=== PATIENT | male | born 1955 | race Caucasian/White ===

== ENCOUNTER 2017-12-16 16:55 | Inpatient (IN) | payer MEDICARE, MEDICAID ==
[~2017-12-16] VITALS: Ht 193 cm; Wt 104.3 kg
[2017-12-16] MEDS ORDERED: Z GUARD REMEDY PASTE 57 GM TUBE TOP PRN (17:15)
[2017-12-16] MEDS ORDERED: DIPH25CA83 PO (17:24)
[2017-12-16] MEDS ORDERED: DOCU100C36 PO (17:24)
[2017-12-16] MEDS ORDERED: BENA40TA8 PO (17:36)
[2017-12-16] MEDS ORDERED: RIVA10TA PO (17:36)
[2017-12-16] MEDS ORDERED: SENN-18 PO (17:36)
[2017-12-16] MEDS ORDERED: HYDR25TA4 PO (17:36)
[2017-12-16] MEDS ORDERED: FAMO20TA8 PO (17:36)
[2017-12-16] MEDS ORDERED: OXYC15TA2 PO (17:36)
[2017-12-16] MEDS ORDERED: AMLO5TAB7 PO (17:36)
[2017-12-16] MEDS ORDERED: ALLO100T PO (17:36)
[2017-12-16] MEDS ORDERED: BISA10SU8 RC (17:46)
[2017-12-16] MEDS ORDERED: TAMS0.4C34 PO (17:46)
[2017-12-16] MEDS ORDERED: HYDR2SYR2 SQ (17:46)
[2017-12-16] MEDS ORDERED: ZOLP5TAB8 PO (17:46)
[2017-12-16 18:07] VITALS: BP 137/87
[2017-12-16] MEDS ORDERED: BISACODYL 10 MG SUPP.RECT RC PRN (19:15)
[2017-12-16] MEDS ORDERED: Medication Not On Formulary EA (Diphenhydramine Hcl (Benadryl) 25 MG) PO PRN (19:15)
[2017-12-16] MEDS ORDERED: ZOLPIDEM 5 MG TABLET PO PRN (19:15)
[2017-12-16] MEDS ORDERED: SENNOSIDES 1 TABLET PO PRN (19:15)
[2017-12-16 19:30] VITALS: BP 132/73
[2017-12-16] MEDS ORDERED: BENZOCAINE/MENTH/CETYLPYRD LOZENGE MM PRN (19:30)
[2017-12-16] MEDS ORDERED: CLONIDINE HCL 0.1 MG TABLET PO PRN (19:30)
--- NOTE | 2017-12-16 19:39 | NUR ---
Admitted a 62 years old male pt from [facility]. Pt. A/Ox4 with capacity to make decision and able to make needs known. Pt now s/p Rt. hip revision by Dr. Luis. Pt. is full code and has allergies to PCN. Pt. with no c/o of pain or discomfort at time of admission. Pt noted with 100.2 F oral, [employer] made aware, cooling measure initiated. Rt. hip surgical incision covered with dry dressing, C/D/I. Pt. on RA, breathing unlabored and equal. Pt. continent to B&B, uses urinal, last BM: 12/14/17. Pt. on regular diet, coordinated with dietary dept. Notified GUNNER'[employer] MATE (Khai Parks) for med recon. Dr. Hussein made aware of admission. Spouse at bedside for emotional support. All needs attended and met. Endorsed to oncoming shift accordingly.
[2017-12-16] MEDS ORDERED: diphenhydrAMINE 25 MG CAP PO PRN (20:00)
[2017-12-16] MEDS: TAMSULOSIN HCL 0.4 MG CAP.SR.24H PO SCH (20:18)
[2017-12-16] MEDS: FAMOTIDINE 20 MG TABLET PO SCH (20:18)
[2017-12-16] MEDS: OXYCODONE HCL 5 MG TABLET PO PRN ×2 (20:18→23:16)
[2017-12-16] MEDS: RIVAROXABAN 10 MG TABLET PO SCH (20:52)
[2017-12-17] MEDS: OXYCODONE HCL 5 MG TABLET PO PRN ×6 (03:01→22:26)
--- NOTE | 2017-12-17 04:49 | NUR ---
awake alert and oriented. in with patient. S/P right hip revision.wesly intact. fall precautions maintained. no acute distress noted. repositioned for comfort. medicated with oxycodone 15mg q3hrs. Tolerated well. Needs attended. voiding well. VSS. kept comfortable.
[2017-12-17 05:45] VITALS: BP 119/71
[2017-12-17 07:03] LABS: BASOPHILS # (AUTO) 0.1 K/uL (0.0-8.0); BASOPHILS % (AUTO) 0.7 % (0.0-2.0); EOSINOPHILS % (AUTO) 0.2 % (0.0-7.0); HEMATOCRIT 28.3 % (36.7-47.1); HEMOGLOBIN 9.9 g/dL (12.5-16.3); LYMPHOCYTES # (AUTO) 0.5 K/uL (20.0-40.0); LYMPHOCYTES % (AUTO) 5.2 % (20.5-51.5); MEAN CORPUSCULAR HEMOGLOBIN 29.5 uug (23.8-33.4); MEAN CORPUSCULAR HGB CONC 35 g/dL (32.5-36.3); MONOCYTES # (AUTO) 0.9 K/uL (2.0-10.0); MONOCYTES % (AUTO) 9.1 % (0.0-11.0); NEUTROPHILS # (AUTO) 8.2 K/uL (1.8-8.9); NEUTROPHILS % (AUTO) 84.8 % (38.5-71.5); PLATELET COUNT (AUTO) 234 K/uL (152-348); RED BLOOD CELL COUNT(AUTO) 3.37 MIL/uL (4.06-5.63); WHITE BLOOD COUNT (AUTO) 9.7 K/uL (3.6-10.2)
[2017-12-17 07:10] LABS: POTASSIUM 3.7 mmol/L (3.5-5.1)
[2017-12-17 08:00] VITALS: BP 128/74
[2017-12-17] MEDS: DOCUSATE SODIUM 100 MG CAPSULE PO SCH ×2 (08:06→16:47)
[2017-12-17] MEDS: HYDROCHLOROTHIAZIDE 25 MG TABLET PO SCH (08:07)
[2017-12-17] MEDS: FAMOTIDINE 20 MG TABLET PO SCH ×2 (08:07→20:34)
[2017-12-17] MEDS: ALLOPURINOL 100 MG TABLET PO SCH (08:07)
[2017-12-17] MEDS: AMLODIPINE 5 MG TABLET PO SCH (08:07)
[2017-12-17] MEDS ORDERED: MAG HYDROX/AL HYDROX/SIMETH 30 ML LIQUID UDC PO PRN (15:15)
[2017-12-17 15:59] VITALS: BP 126/69
[2017-12-17] MEDS ORDERED: ACETAMINOPHEN ES 500 MG TABLET PO ONE (16:30)
[2017-12-17] MEDS: MAGNESIUM HYDROXIDE 30 ML LIQUID UDC PO PRN (16:47)
[2017-12-17] MEDS: RIVAROXABAN 10 MG TABLET PO SCH (16:48)
[2017-12-17] MEDS ORDERED: RIVAROXABAN 10 MG TABLET PO SCH (17:00)
--- NOTE | 2017-12-17 17:34 | NUR ---
Patient is alert and oriented with periods of confusion. Patient continue on pain management oxycodone 15mg every 3 hours for pain. SPO2 90%. Oxygen via nasal cannula at 2LPM given. DNP Charly notified and ordered tylenol 1000mg now and PRN 650mg every 4 hours PRN and BMP CBC UA/CS for laboratory. Temp went down to 98.8'F SPO2 95%. milk of magnesia given for 3 days no BM. not in distress. will continue monitor
[2017-12-17 17:44] LABS: POTASSIUM 3.8 mmol/L (3.5-5.1)
[2017-12-17 17:47] LABS: BASOPHILS # (AUTO) 0.1 K/uL (0.0-8.0); BASOPHILS % (AUTO) 0.5 % (0.0-2.0); EOSINOPHILS % (AUTO) 0.2 % (0.0-7.0); HEMATOCRIT 30.4 % (36.7-47.1); HEMOGLOBIN 10.6 g/dL (12.5-16.3); LYMPHOCYTES # (AUTO) 0.5 K/uL (20.0-40.0); LYMPHOCYTES % (AUTO) 4.6 % (20.5-51.5); MEAN CORPUSCULAR HEMOGLOBIN 29.2 uug (23.8-33.4); MEAN CORPUSCULAR HGB CONC 35 g/dL (32.5-36.3); MEAN CORPUSCULAR VOLUME 83.8 fL (73.0-96.2); MONOCYTES % (AUTO) 8.6 % (0.0-11.0); NEUTROPHILS # (AUTO) 9.7 K/uL (1.8-8.9); NEUTROPHILS % (AUTO) 86.1 % (38.5-71.5); PLATELET COUNT (AUTO) 308 K/uL (152-348); RED BLOOD CELL COUNT(AUTO) 3.63 MIL/uL (4.06-5.63); WHITE BLOOD COUNT (AUTO) 11.2 K/uL (3.6-10.2)
[2017-12-17 19:44] VITALS: BP 122/75
[2017-12-17] MEDS: TAMSULOSIN HCL 0.4 MG CAP.SR.24H PO SCH (20:33)
--- NOTE | 2017-12-17 22:53 | NUR ---
awake alert and oriented. compliant with meds. tolerated well. UA C&S sent to lab per MD's order. PM care done. voiding well. needs attended. pain meds given as ordered with relief noted. right hip dressing clean dry and intact. fall precautions maintained. siderails up for safety. will monitor patient. no acute distress noted.
[2017-12-18 05:53] VITALS: BP 135/68
[2017-12-18] MEDS: OXYCODONE HCL 5 MG TABLET PO PRN ×3 (06:11→19:45)
[2017-12-18 08:00] VITALS: BP 125/71
[2017-12-18] MEDS: ACETAMINOPHEN 325 MG TABLET PO PRN ×3 (08:33→19:45)
[2017-12-18] MEDS: DOCUSATE SODIUM 100 MG CAPSULE PO SCH ×2 (08:34→15:45)
[2017-12-18] MEDS: HYDROCHLOROTHIAZIDE 25 MG TABLET PO SCH (08:34)
[2017-12-18] MEDS: AMLODIPINE 5 MG TABLET PO SCH (08:35)
[2017-12-18] MEDS: FAMOTIDINE 20 MG TABLET PO SCH ×2 (08:35→20:15)
[2017-12-18] MEDS: ALLOPURINOL 100 MG TABLET PO SCH (08:36)
[2017-12-18] MEDS: RIVAROXABAN 10 MG TABLET PO SCH (15:47)
[2017-12-18 16:00] VITALS: BP 127/67
[2017-12-18] MEDS ORDERED: MIRALAX 17 GM POWD.PACK PO PRN (18:45)
[2017-12-18] MEDS ORDERED: BISACODYL 10 MG SUPP.RECT RC PRN (18:45)
[2017-12-18 19:30] VITALS: BP 125/74
--- NOTE | 2017-12-18 19:51 | NUR ---
Received pt in bed, awake alert & oriented. No acute distress noted. Verbally responsive and able to make needs known. C/O pain 8/10 pain scale on right hip and back, PRN pain medications given per MD order. Noted w/ 99.7 oral temp. PRN Tylenol 650 mg given per MD order. Both medications tolerated well. All safety measures and fall precautions maintained. Call light and all personal belongings within reach. Will continue to monitor.
[2017-12-18] MEDS: TAMSULOSIN HCL 0.4 MG CAP.SR.24H PO SCH (20:15)
--- NOTE | 2017-12-18 20:47 | NUR ---
Re-checked oral temp and noted it to be 98.2 F. Safety maintained. Will continue to monitor.
[2017-12-18] MEDS ORDERED: LIDOCAINE 2% (UROJET) 10 ML JELLY MM PRN (21:30)
--- NOTE | 2017-12-18 21:30 | NUR ---
New order for UA. Urine collected and sent to lab.
[2017-12-18 22:01] LABS: *BILIRUBIN,URIN NEGATIVE (NEGATIVE); *BLOOD, URINE Trace-intact (NEGATIVE); *CLARITY,URINE SLIGHTLY CLOUDY (CLEAR); *COLOR,URINE YELLOW (YELLOW); *KETONES,URINE NEGATIVE (NEGATIVE); *PROTEIN,URINE 1+ (NEGATIVE); LEUKOCYTE ESTERASE ,URINE NEGATIVE (NEGATIVE); NITRITE, URINE NEGATIVE (NEGATIVE); PH,URINE 5.5 (5.0-8.0); UGLUCOSE NEGATIVE (NEGATIVE)
[2017-12-18 22:15] LABS: BACTERIA,URINE NONE SEEN /HPF (NONE SEEN); RBC,URINE 0-3 /HPF (0-3); SQUAMOUS EPITHELIAL CELL,UR NONE SEEN /HPF (NONE SEEN); WBC,URINE 0-3 /HPF (0-3)
[2017-12-19] MEDS: OXYCODONE HCL 5 MG TABLET PO PRN ×5 (00:14→14:24)
[2017-12-19] MEDS: ACETAMINOPHEN 325 MG TABLET PO PRN ×2 (03:20→17:14)
[2017-12-19 04:00] VITALS: BP 127/78
[2017-12-19 07:15] LABS: CREATININE 0.9 mg/dL (0.6-1.3); MAGNESIUM 2.2 mg/dL (1.8-2.4); PHOSPHOROUS 4.1 mg/dL (2.5-4.9); POTASSIUM 3.9 mmol/L (3.5-5.1)
[2017-12-19 07:37] LABS: BASOPHILS % (AUTO) 0.2 % (0.0-2.0); EOSINOPHILS # (AUTO) 0.1 K/uL (0.0-0.7); EOSINOPHILS % (AUTO) 0.9 % (0.0-7.0); HEMATOCRIT 28.7 % (36.7-47.1); HEMOGLOBIN 9.9 g/dL (12.5-16.3); LYMPHOCYTES # (AUTO) 0.4 K/uL (20.0-40.0); MEAN CORPUSCULAR HEMOGLOBIN 29.2 uug (23.8-33.4); MEAN CORPUSCULAR HGB CONC 35 g/dL (32.5-36.3); MEAN CORPUSCULAR VOLUME 84.6 fL (73.0-96.2); MONOCYTES # (AUTO) 0.5 K/uL (2.0-10.0); MONOCYTES % (AUTO) 7.3 % (0.0-11.0); NEUTROPHILS # (AUTO) 6.3 K/uL (1.8-8.9); NEUTROPHILS % (AUTO) 85.6 % (38.5-71.5); PLATELET COUNT (AUTO) 306 K/uL (152-348)
[2017-12-19 07:48] LABS: WHITE BLOOD COUNT (AUTO) 7.4 K/uL (3.6-10.2)
[2017-12-19 08:00] VITALS: BP 131/82
--- NOTE | 2017-12-19 08:00 | NUR ---
Patient awake, sitting up on bed eating breakfast, not in any form of acute distress. He denies any pain or discomfort at this time. Attended to his needs. Call light placed within reach.
[2017-12-19] MEDS: AMLODIPINE 5 MG TABLET PO SCH (08:22)
[2017-12-19] MEDS: DOCUSATE SODIUM 100 MG CAPSULE PO SCH ×2 (08:22→17:13)
[2017-12-19] MEDS: ALLOPURINOL 100 MG TABLET PO SCH (08:23)
[2017-12-19] MEDS: HYDROCHLOROTHIAZIDE 25 MG TABLET PO SCH (08:23)
[2017-12-19] MEDS: FAMOTIDINE 20 MG TABLET PO SCH ×2 (08:24→19:47)
[2017-12-19 16:21] VITALS: BP 119/71
[2017-12-19] MEDS: RIVAROXABAN 10 MG TABLET PO SCH (17:11)
--- NOTE | 2017-12-19 17:24 | NUR ---
Offered PRN miralax/MOM/dulcolax suppository but patient refused. Also offered prune juice but patient refused.
--- NOTE | 2017-12-19 19:00 | NUR ---
Bedside reporting done. Patient sleeping during initial rounds. No s/s of pain/discomforts. Safety measures and fall precaution maintained. Continue care as planned.
[2017-12-19] MEDS: SENNOSIDES 1 TABLET PO SCH (19:46)
[2017-12-19] MEDS: TAMSULOSIN HCL 0.4 MG CAP.SR.24H PO SCH (19:46)
[2017-12-19] MEDS: MORPHINE SULFATE SR 30 MG TABLET.SA PO SCH (19:50)
--- NOTE | 2017-12-19 19:50 | NUR ---
Awakened and complaining of right hip pain in scale of 8/10. Requested all medications due will be given too as well so he wont be bother after. All medications due for 2100 was given earlier as schedule. Continue to monitor.
[2017-12-19 20:00] VITALS: BP 139/80
--- NOTE | 2017-12-19 21:24 | NUR ---
Made comfortable in bed.
[2017-12-20 06:15] VITALS: BP 141/76
--- NOTE | 2017-12-20 06:21 | NUR ---
Shift End Report: Slept well. Pain medication given effective. No further complaint presented. No fall/injury.Remain afebrile throughout the shift. All needs attended and met. No significant event reported all night. Continue care as planned.
[2017-12-20 08:00] VITALS: BP 127/76
[2017-12-20] MEDS: ALLOPURINOL 100 MG TABLET PO SCH (08:12)
[2017-12-20] MEDS: FAMOTIDINE 20 MG TABLET PO SCH ×2 (08:12→20:51)
[2017-12-20] MEDS: DOCUSATE SODIUM 100 MG CAPSULE PO SCH ×2 (08:12→17:09)
[2017-12-20] MEDS: AMLODIPINE 5 MG TABLET PO SCH (08:13)
[2017-12-20] MEDS: HYDROCHLOROTHIAZIDE 25 MG TABLET PO SCH (08:13)
[2017-12-20] MEDS: MORPHINE SULFATE SR 30 MG TABLET.SA PO SCH ×3 (08:51→22:16)
--- NOTE | 2017-12-20 09:11 | NUR ---
Received report from previous shift. Received pt. in bed with eyes open and comfortable. Pt. A/OX3 with capacity to made decision and able to make his needs known. Denies CP or SOB at this time. C/O 10/11 P.S on surgical incision on RT. Hip. Rt. hip dressing changed PRN soiled, noted with 38 wesly, no s/s of infection or bleeding noted. Pain medications given as ordered. All due AM medications administered and tolerated well. Safety measures in place. Bed brakes on 2X upper SR up as enabler for bed position and mobility. Kept pt. clean and dry. All pt. needs attended promptly. Call light and all frequently used items in reach. Will continue to monitor accordingly.
[2017-12-20] MEDS: OXYCODONE HCL 5 MG TABLET PO PRN ×2 (09:43→17:10)
--- NOTE | 2017-12-20 10:47 | NUR ---
Relayed to Dr. Hussein pt. still c/o severe pain (8 p.s) on RT. hip. Received order to to d/c previous MS contin order and start Gabapentin 300 mg PO BID and MS contin 30 mg PO Q8H ATC. Orders noted and carried out. Pt. made aware.
--- NOTE | 2017-12-20 13:25 | NUR ---
Pt. has f/u appointment with Dr. Luis (Ortho) on 12/28/2017 (1:30 PM), transportation arranged by CM. wastewater supervisor time 12:30 PM by [employer] trip# [id number]. Pt. made aware with no further question. Requested XR of rt. hip to Dr. Keenan MD amenable. Orders noted and carried out.
[2017-12-20 16:04] VITALS: BP 141/83
[2017-12-20] MEDS: GABAPENTIN 300 MG CAPSULE PO SCH (17:09)
[2017-12-20] MEDS: RIVAROXABAN 10 MG TABLET PO SCH (17:11)
--- NOTE | 2017-12-20 18:14 | NUR ---
Recieved order for air mattress for skin mgt from Dr. Hussein. Orders noted and carried out. Pt. made aware.
--- NOTE | 2017-12-20 18:53 | NUR ---
End of shift note: No significant change during this shift. Pt. remains stable with no c/o CP or SOB. Encourage pt. to use incentive spirometer to help improve lung functions. Participated with PT/OT treatment and tolerated well. No changes in mentation. Safety measures and fall precaution in place. CXR completed today results reveal no evidence of PNA, pleural effusion or pneumothorax, noted with mild RT and mod Lt. basilar atelecatasis. All pt. needs promptly met. Afebrile throughout this shift. pt. with C/O 7/10 P.S on Rt. Hip surgical incision, PRN oxycodone given as ordered. Repositioned pt. for comfort. All afternoon due meds given and tolerated well. Rt. Hip surgical dressing kept C/D/I. Call light and all frequently used items a within reach. Will endorse to oncoming shift accordingly.
--- NOTE | 2017-12-20 19:00 | NUR ---
Bedside reporting. Patient appears sleeping at this time. No s/s of pain/discomforts noted at this time. Safety measures and fall precaution maintained. Urinal within easy reach. Continue care as planned.
[2017-12-20 19:59] VITALS: BP 119/68
[2017-12-20] MEDS: TAMSULOSIN HCL 0.4 MG CAP.SR.24H PO SCH (20:51)
[2017-12-20] MEDS: SENNOSIDES 1 TABLET PO SCH (20:51)
[2017-12-21] MEDS: MORPHINE SULFATE SR 30 MG TABLET.SA PO SCH ×3 (05:38→22:38)
[2017-12-21 07:00] VITALS: BP 130/67
--- NOTE | 2017-12-21 07:00 | NUR ---
Shift End Report: VS stable. Slept good. No complaint presented all night. All needs attended and met. Continue current rehab plan of care.
[2017-12-21] MEDS: OXYCODONE HCL 5 MG TABLET PO PRN ×2 (07:36→12:06)
[2017-12-21] MEDS: HYDROCHLOROTHIAZIDE 25 MG TABLET PO SCH (08:47)
[2017-12-21] MEDS: GABAPENTIN 300 MG CAPSULE PO SCH ×2 (08:47→17:35)
[2017-12-21] MEDS: DOCUSATE SODIUM 100 MG CAPSULE PO SCH ×2 (08:47→17:34)
[2017-12-21] MEDS: FAMOTIDINE 20 MG TABLET PO SCH ×2 (08:48→20:59)
[2017-12-21] MEDS: ALLOPURINOL 100 MG TABLET PO SCH (08:48)
[2017-12-21] MEDS: AMLODIPINE 5 MG TABLET PO SCH (08:48)
[2017-12-21 09:01] VITALS: BP 125/70
--- NOTE | 2017-12-21 09:02 | NUR ---
Received report from previous shift. Received pt. in bed with eyes open and comfortable. A/OX3 and able to make his needs known. Denies CP or SOB at this time. C/O 7/10 P.S on surgical incision on RT. Hip. PRN OxyIR administered as ordered. C/O of new onset of back area itching, skin with slight redness no skin breakdown. Air mattress arrive in unit and setup accordingly. All due AM medications administered and tolerated well. Safety measures and fall precaution in place. Bed brakes on 2X upper SR up as enabler for bed position and mobility. Kept pt. clean and dry. All pt. needs attended promptly. Call light and all frequently used items in reach. Will continue to monitor accordingly
[2017-12-21] MEDS: MAGNESIUM HYDROXIDE 30 ML LIQUID UDC PO PRN (12:06)
--- NOTE | 2017-12-21 13:39 | NUR ---
Received order for hydrocortisone cream from Dr. Baker for itching.
--- NOTE | 2017-12-21 16:03 | NUR ---
INTERDISCIPLINARY TEAM CONFERENCE
[2017-12-21 17:17] VITALS: BP 122/68
[2017-12-21] MEDS: HYDROCORTISONE 1% CREAM 30 GM TUBE TP SCH (17:35)
[2017-12-21] MEDS: RIVAROXABAN 10 MG TABLET PO SCH (17:36)
--- NOTE | 2017-12-21 19:00 | NUR ---
Sleeping during initial rounds but easily arousable when name called. Denies any pain/discomforts at this time. Continue care as planned.
[2017-12-21 19:19] VITALS: BP 125/71
--- NOTE | 2017-12-21 19:22 | NUR ---
End of shift note: No significant changed during this shift. All due medications administered as ordered and tolerated well. Encourage use of IS for lung expansion. Pt. participated with OT/PT tx today and tolerated well. Pt. denies SOB or CP, remain afebrile throught this shift. No new skin condition noted. Pt pain well managed with pain regimen. All needs attended and met. Safety measures in place. Call light and all frequently used items in reach. Will endorse to oncoming shift accordingly.
[2017-12-21] MEDS: SENNOSIDES 1 TABLET PO SCH (20:59)
[2017-12-21] MEDS: TAMSULOSIN HCL 0.4 MG CAP.SR.24H PO SCH (20:59)
[2017-12-22] MEDS: OXYCODONE HCL 5 MG TABLET PO PRN ×3 (03:21→17:06)
[2017-12-22] MEDS: MORPHINE SULFATE SR 30 MG TABLET.SA PO SCH ×3 (05:32→21:10)
[2017-12-22 05:39] VITALS: BP 120/65
--- NOTE | 2017-12-22 05:41 | NUR ---
Shift End Report: VS stable.Slept well. Encouraged self help by turning once in while on bed to avoid complication. Redness/rashes on back slightly visible this time. Denies itchiness. Good back rub rendered after each turning. Medicated once for a PRN pain medication otherwise pain controlled. No fall/injury. All needs attended and anticipated. No significant event reported all night. Continue current rehab plan of care.
--- NOTE | 2017-12-22 07:20 | NUR ---
Patient noted sitting up in bed, states pain level is a 7/10 but would prefers to have pain medication around 0900 for therapy, no signs of distress noted, call light in reach, bed locked and in lowest position, x [address], all needs met at this time
[2017-12-22] MEDS: DOCUSATE SODIUM 100 MG CAPSULE PO SCH ×2 (08:47→17:06)
[2017-12-22] MEDS: GABAPENTIN 300 MG CAPSULE PO SCH ×2 (08:47→17:06)
[2017-12-22] MEDS: FAMOTIDINE 20 MG TABLET PO SCH ×2 (08:47→20:17)
[2017-12-22] MEDS: ALLOPURINOL 100 MG TABLET PO SCH (08:47)
[2017-12-22] MEDS: AMLODIPINE 5 MG TABLET PO SCH (08:49)
[2017-12-22] MEDS: HYDROCHLOROTHIAZIDE 25 MG TABLET PO SCH (08:50)
[2017-12-22] MEDS: HYDROCORTISONE 1% CREAM 30 GM TUBE TP SCH ×2 (08:51→17:09)
[2017-12-22 09:25] VITALS: BP 133/58
--- NOTE | 2017-12-22 16:47 | NUR ---
Patient surgical dressing changed as ordered, redness and swelling noted to staple sites, picture placed in chart, MD Pires notified with orders for wound consult
[2017-12-22] MEDS: RIVAROXABAN 10 MG TABLET PO SCH (17:09)
--- NOTE | 2017-12-22 19:59 | NUR ---
Received pt resting in bed. AAO x4. No acute distress noted. No c/o pain or discomfort at this time. Pt stated that he feels better now than this morning in regards to pain. Temp. elevated 101.1, will give Tylenol PRN. Cooling measures initiated. Will notify MD. As per day shift RN, Dr. Ding is aware of developing wound infection and put an order for wound consult. Air mattress in place, will encourage turning and repositioning. Safety measures maintained. Call light and personal belongings within reach. Will continue to monitor.
[2017-12-22 20:00] VITALS: BP 136/70
[2017-12-22] MEDS: ACETAMINOPHEN 325 MG TABLET PO PRN (20:16)
[2017-12-22] MEDS: TAMSULOSIN HCL 0.4 MG CAP.SR.24H PO SCH (20:17)
[2017-12-22] MEDS: SENNOSIDES 1 TABLET PO SCH (20:18)
--- NOTE | 2017-12-22 20:27 | NUR ---
Pt refused senokot, stated that he wants to rest tonight and it might make him go to the bathroom in the middle of the night. Risks and benefits explained, still refused. He stated that he will take something for the bowel movement in the morning instead. Also noted that dinner tray is untouched when collected, pt stated that he is not hungry but he ate lunch. Encouraged pt to let me know if he gets hungry so I can provide a meal or some snacks anytime. Pt verbalized understanding. Will continue to monitor.
--- NOTE | 2017-12-22 21:02 | NUR ---
At 2036, notified Dr. Ding regarding pt's elevated temp and lab result on 12/19/17 Na 131. responded at 2057 for new lab in the morning. Will continue to monitor.
[2017-12-23] MEDS: MORPHINE SULFATE SR 30 MG TABLET.SA PO SCH ×3 (06:19→21:01)
[2017-12-23 06:43] VITALS: BP 137/75
--- NOTE | 2017-12-23 06:51 | NUR ---
Cleaned pt and changed diaper. Wound dressing intact. No leakage. Will continue to monitor.
[2017-12-23 07:12] LABS: BASOPHILS % (AUTO) 0.4 % (0.0-2.0); EOSINOPHILS # (AUTO) 0.1 K/uL (0.0-0.7); EOSINOPHILS % (AUTO) 0.8 % (0.0-7.0); HEMATOCRIT 27.9 % (36.7-47.1); HEMOGLOBIN 9.6 g/dL (12.5-16.3); LYMPHOCYTES # (AUTO) 0.4 K/uL (20.0-40.0); LYMPHOCYTES % (AUTO) 4.9 % (20.5-51.5); MEAN CORPUSCULAR HEMOGLOBIN 28.8 uug (23.8-33.4); MEAN CORPUSCULAR HGB CONC 34 g/dL (32.5-36.3); MEAN CORPUSCULAR VOLUME 83.9 fL (73.0-96.2); MONOCYTES # (AUTO) 0.6 K/uL (2.0-10.0); MONOCYTES % (AUTO) 8.1 % (0.0-11.0); NEUTROPHILS # (AUTO) 6.1 K/uL (1.8-8.9); NEUTROPHILS % (AUTO) 85.8 % (38.5-71.5); PLATELET COUNT (AUTO) 456 K/uL (152-348); RED BLOOD CELL COUNT(AUTO) 3.32 MIL/uL (4.06-5.63); WHITE BLOOD COUNT (AUTO) 7.2 K/uL (3.6-10.2)
[2017-12-23 07:22] LABS: CREATININE 0.8 mg/dL (0.6-1.3)
[2017-12-23 08:30] VITALS: BP 127/63
[2017-12-23] MEDS: GABAPENTIN 300 MG CAPSULE PO SCH ×2 (08:53→17:11)
[2017-12-23] MEDS: HYDROCHLOROTHIAZIDE 25 MG TABLET PO SCH (08:54)
[2017-12-23] MEDS: FAMOTIDINE 20 MG TABLET PO SCH ×2 (08:54→20:59)
[2017-12-23] MEDS: AMLODIPINE 5 MG TABLET PO SCH (08:54)
[2017-12-23] MEDS: ALLOPURINOL 100 MG TABLET PO SCH (08:54)
[2017-12-23] MEDS: DOCUSATE SODIUM 100 MG CAPSULE PO SCH ×2 (08:54→17:11)
[2017-12-23] MEDS: OXYCODONE HCL 5 MG TABLET PO PRN (08:56)
[2017-12-23] MEDS: HYDROCORTISONE 1% CREAM 30 GM TUBE TP SCH ×2 (09:07→17:13)
--- NOTE | 2017-12-23 12:10 | NUR ---
Dr. Timur Pires in the unit, notified MD regarding patient's complain of gout flare ups and MD ordered Colchicine 0.6mg BID. Also told MD regarding surgical wound redness as endorsed by night clerk, showed wound picture and he ordered vancomycin IV pharmacy to dose. Informed MD regarding sodium of 128 with no new order.
--- NOTE | 2017-12-23 13:03 | NUR ---
WOUND CARE CONSULT: PT SEEN FOR RT HIP INCISION WITH NAY. NO TENDERNESS NOTED, NO DRAINAGE NOTED BUT SLIGHT REDNESS NOTED. HEALED AREA NOTED TO THIGH POSTERIOR TO INCISION. DEFER TO SURGEON FOR SURGICAL SITE. PT ALSO NOTED TO HAVE RT HEEL INTACT DEEP TISSUE INJURY. RECOMMENDATIONS MADE FOR CARE AND PROTECTION OF HEELS. DISCUSSED WITH NURSING STAFF. PT ON FIRST STEP [facility] LOW AIRLOSS MATTRESS. ALL SKIN PROTECTION MEASURES IN PLACE. WILL SEE PRN. Ken Velázquez IN AGREEMENT WITH PLAN OF CARE. Addendum: 12/23/17 at 1306 by STEFANIE HERNANDEZ RN Amended: Links added.
--- NOTE | 2017-12-23 13:22 | NUR ---
Received call from Dr. Luis's office, regarding redness over surgical site. ESTELLE Morfin for Dr. Luis said to continue to monitor for increasing redness and watch out for dehiscence, drainage or other s/s and update or call clinic as necessary. PA said if Hospitalist deem it necessary for anti-biotics, that is fine until DR. Luis would see the patient on the day scheduled, 12/28.
--- NOTE | 2017-12-23 13:38 | NUR ---
INTERDISCIPLINARY TEAM CONFERENCE
--- NOTE | 2017-12-23 14:45 | NUR ---
Dr. Hussein made aware regarding surgical site redness, MD saw patient and examined surgical site. MD stated not to start IV vancomycin yet until he speaks with Dr. Timur Nielsen.
--- NOTE | 2017-12-23 15:24 | NUR ---
Clinical pharmacy note-Vancomycin dosing per pharmacy Subjective: To start Vancomycin dosing on this patient for suspected infection(S/P his arthroplasty) Objective: BUN 17 Scr 0.8 WBC 7.2 Temp 98.1 Assessment/Plan: Will start Vancomycin 1750mg IV every 12hrs(first dose given today at 1400) and draw trough by 4th dose(not ordered yet) for expected trough around 15.84. Will monitor daily.
--- NOTE | 2017-12-23 15:30 | NUR ---
Left a message to Dr. Hussein to follow up on the administration of IV vancomycin, awaiting call back.
[2017-12-23 16:28] VITALS: BP 131/73
--- NOTE | 2017-12-23 17:00 | NUR ---
Received a call back from Dr. Hussein and ordered may administer Vancomycin IV as initially ordered.
[2017-12-23] MEDS: VANCOMYCIN IV 1,750 MG in IV DEXTROSE 5% 500 ML IV SCH (17:10)
[2017-12-23] MEDS: COLCHICINE 0.6 MG TABLET PO SCH (17:11)
[2017-12-23] MEDS: RIVAROXABAN 10 MG TABLET PO SCH (17:12)
[2017-12-23 20:30] VITALS: BP 124/68
[2017-12-23] MEDS: TAMSULOSIN HCL 0.4 MG CAP.SR.24H PO SCH (20:58)
[2017-12-23] MEDS: SENNOSIDES 1 TABLET PO SCH (20:59)
[2017-12-24] MEDS: VANCOMYCIN IV 1,750 MG in IV DEXTROSE 5% 500 ML IV SCH ×2 (01:08→14:04)
[2017-12-24 05:24] VITALS: BP 132/71
--- NOTE | 2017-12-24 05:34 | NUR ---
slept most of the shift. aaox4. needs attended. no acute distress noted. right arm heplock intact. IV Vancomycin given. fall precautions maintained. call bella within reach. pain meds given as scheduled. voiding well. VSS. Right hip dressing clean dry and intact. UA sent for random sodium. Will monitor patient.
[2017-12-24] MEDS: MORPHINE SULFATE SR 30 MG TABLET.SA PO SCH ×3 (06:14→21:28)
[2017-12-24 06:58] LABS: CREATININE 0.8 mg/dL (0.6-1.3); MAGNESIUM 1.9 mg/dL (1.8-2.4); PHOSPHOROUS 3.9 mg/dL (2.5-4.9); POTASSIUM 4.1 mmol/L (3.5-5.1); URIC ACID 4.5 mg/dL (3.5-7.2)
[2017-12-24 07:05] LABS: THYROID STIMULATING HORMONE 0.857 mIU/mL (0.358-3.740)
--- NOTE | 2017-12-24 07:29 | NUR ---
PATIENT NOTED RESTING IN BED WITH EYES CLOSED, AROUSES EASILY, STATES PAIN LEVEL IS A 8/10, WILL GIVEN PRN PAIN MEDICATION, NO SIGNS OF DISTRESS NOTED, CALL LIGHT IN REACH, BED LOCKED AND IN LOWEST POSITION, X 2 BED RAILS
[2017-12-24] MEDS: FAMOTIDINE 20 MG TABLET PO SCH ×2 (08:24→21:28)
[2017-12-24] MEDS: DOCUSATE SODIUM 100 MG CAPSULE PO SCH ×2 (08:24→17:15)
[2017-12-24] MEDS: OXYCODONE HCL 5 MG TABLET PO PRN ×2 (08:24→17:16)
[2017-12-24] MEDS: COLCHICINE 0.6 MG TABLET PO SCH ×2 (08:24→17:15)
[2017-12-24] MEDS: ALLOPURINOL 100 MG TABLET PO SCH (08:24)
[2017-12-24] MEDS: GABAPENTIN 300 MG CAPSULE PO SCH ×2 (08:24→17:15)
[2017-12-24] MEDS: AMLODIPINE 5 MG TABLET PO SCH (08:28)
[2017-12-24] MEDS: HYDROCORTISONE 1% CREAM 30 GM TUBE TP SCH ×2 (08:31→17:15)
[2017-12-24 09:07] VITALS: BP 120/66
--- NOTE | 2017-12-24 10:54 | NUR ---
Clinical pharmacy note-Vancomycin dosing per pharmacy Subjective: To continue Vancomycin dosing on this patient for suspected infection(S/P his arthroplasty- fever) Objective: BUN 16 Scr 0.8 WBC 7.2 (12/23) Temp 98.3 Assessment/Plan: Will continue same dose of Vancomycin 1750mg IV every 12hrs for today. First dose was given 1700 instead of 1400 on 12/23. Will consider 12/24 0100 dose as 1st dose) and plan to draw trough by 4th dose(not ordered yet) for expected trough around 15.84. Will monitor daily.
[2017-12-24] MEDS: RIVAROXABAN 10 MG TABLET PO SCH (17:15)
--- NOTE | 2017-12-24 19:44 | NUR ---
Received pt in bed, AAO x4 resting in bed with at bedside. No acute distress noted. Verbally responsive and able to make needs known. C/O of "discomfort in joints because of gout". Per pt, pain is decreased after pain medication given by AM nurse. All safety measures and fall precautions maintained. Call light and all personal belongings within reach. Will continue to monitor.
[2017-12-24 20:15] VITALS: BP 127/74
[2017-12-24] MEDS: TAMSULOSIN HCL 0.4 MG CAP.SR.24H PO SCH (21:28)
[2017-12-24] MEDS: SENNOSIDES 1 TABLET PO SCH (21:28)
[2017-12-25] MEDS: VANCOMYCIN IV 1,750 MG in IV DEXTROSE 5% 500 ML IV SCH ×2 (01:09→15:08)
[2017-12-25] MEDS: OXYCODONE HCL 5 MG TABLET PO PRN ×2 (01:19→09:49)
[2017-12-25 05:00] VITALS: BP 122/70
[2017-12-25] MEDS: MORPHINE SULFATE SR 30 MG TABLET.SA PO SCH ×3 (06:09→21:32)
--- NOTE | 2017-12-25 06:34 | NUR ---
Dressing change done as ordered. Site noted with redness, wesly intact with no drainage noted. Offered disposable underwear and patient complied, placing pad from home in underwear. Safety maintained. Compliant with care, all due medications given as ordered and tolerated well. Call light within reach. Will continue to monitor.
[2017-12-25 08:45] VITALS: BP 122/74
[2017-12-25] MEDS: DOCUSATE SODIUM 100 MG CAPSULE PO SCH ×2 (09:36→17:37)
[2017-12-25] MEDS: GABAPENTIN 300 MG CAPSULE PO SCH ×2 (09:36→17:36)
[2017-12-25] MEDS: COLCHICINE 0.6 MG TABLET PO SCH ×2 (09:36→17:37)
[2017-12-25] MEDS: ALLOPURINOL 300 MG TABLET PO SCH (09:37)
[2017-12-25] MEDS: AMLODIPINE 5 MG TABLET PO SCH (09:37)
[2017-12-25] MEDS: FAMOTIDINE 20 MG TABLET PO SCH ×2 (09:37→21:32)
[2017-12-25] MEDS: HYDROCORTISONE 1% CREAM 30 GM TUBE TP SCH ×2 (09:38→17:43)
--- NOTE | 2017-12-25 14:09 | NUR ---
Clinical pharmacy note-Vancomycin dosing per pharmacy Subjective: To continue Vancomycin dosing on this 62 yo male patient for suspected infection(S/P his arthroplasty) Objective: BUN 16 (12/24) Scr 0.8 (12/24) WBC 7.2 (12/23) Temp 98.4 Vanco trough level: 11 ht 193 cm wt 104 kg Assessment/Plan: Since vanco trough level is 11 mcg/ml, will change dose of Vancomycin to 1750mg IV every 10 hrs(first dose given today at 1430) and draw trough by 4th dose(not ordered yet) for expected trough around 15.9. Will monitor renal function & adjust the dose if needed. Will follow up.
[2017-12-25] MEDS: RIVAROXABAN 10 MG TABLET PO SCH (17:37)
--- NOTE | 2017-12-25 19:35 | NUR ---
Received pt in bed, AAO x 4, no acute distress noted. Denies pain or discomfort at this time. Verbally responsive and able to make needs known. All safety measures and fall precautions maintained. Call light and all personal belongings within reach. Will continue to monitor.
[2017-12-25] MEDS: TAMSULOSIN HCL 0.4 MG CAP.SR.24H PO SCH (21:32)
[2017-12-25] MEDS: SENNOSIDES 1 TABLET PO SCH (21:32)
[2017-12-25 21:50] VITALS: BP 128/67
[2017-12-26] MEDS: VANCOMYCIN IV 1,750 MG in IV DEXTROSE 5% 500 ML IV SCH ×3 (00:23→20:50)
[2017-12-26] MEDS: OXYCODONE HCL 5 MG TABLET PO PRN ×3 (00:30→17:28)
[2017-12-26] MEDS: MORPHINE SULFATE SR 30 MG TABLET.SA PO SCH ×3 (05:42→21:03)
[2017-12-26 06:38] VITALS: BP 124/68
--- NOTE | 2017-12-26 07:52 | NUR ---
Patient noted resting in bed with eyes closed, no facial cues of pain noted, no signs of distress, call light in reach, bed locked and in lowest position, x [address], urinal and bed side table in reach
[2017-12-26] MEDS: DOCUSATE SODIUM 100 MG CAPSULE PO SCH ×2 (08:47→17:24)
[2017-12-26] MEDS: ALLOPURINOL 300 MG TABLET PO SCH (08:47)
[2017-12-26] MEDS: GABAPENTIN 300 MG CAPSULE PO SCH ×2 (08:47→17:23)
[2017-12-26] MEDS: COLCHICINE 0.6 MG TABLET PO SCH ×2 (08:47→17:24)
[2017-12-26] MEDS: FAMOTIDINE 20 MG TABLET PO SCH ×2 (08:47→21:02)
[2017-12-26] MEDS: AMLODIPINE 5 MG TABLET PO SCH (08:48)
[2017-12-26] MEDS: HYDROCORTISONE 1% CREAM 30 GM TUBE TP SCH ×2 (08:49→17:28)
[2017-12-26 12:49] VITALS: BP 117/67
--- NOTE | 2017-12-26 15:00 | NUR ---
Clinical pharmacy note-Vancomycin dosing per pharmacy Subjective: To continue Vancomycin dosing on this 62 yo male patient for suspected infection(S/P his arthroplasty) Objective: BUN 16 (12/24) Scr 0.8 (12/24) WBC 7.2 (12/23) Temp 98.5 Vanco trough level: pending tonight @1999 ht 193 cm wt 104 kg Assessment/Plan: Will continue Vancomycin 1750mg IV every 10 hrs and draw trough by 4th dose (due tonight @1999) for expected trough around 15.9. Will check level in am and adjust as needed. Will follow
[2017-12-26 15:45] VITALS: BP 128/73
[2017-12-26] MEDS: RIVAROXABAN 10 MG TABLET PO SCH (17:23)
--- NOTE | 2017-12-26 19:23 | NUR ---
Dressing to right hip changed, redness and drainage noted to surgical site, MD aware of findings, no change in status this shift
[2017-12-26 20:10] VITALS: BP 130/72
[2017-12-26] MEDS: TAMSULOSIN HCL 0.4 MG CAP.SR.24H PO SCH (21:02)
[2017-12-26] MEDS: SENNOSIDES 1 TABLET PO SCH (21:02)
[2017-12-27 05:10] VITALS: BP 147/83
--- NOTE | 2017-12-27 05:16 | NUR ---
quiet night. aaox4 no acute distress noted. patient still on IV vancomycin. tolerated well no ill effects noted. voiding frequently in the urinal. tolerated po meds well also the pain medicine. fall precautions maintained. siderails up for safety. will monitor patient.
[2017-12-27] MEDS: VANCOMYCIN IV 1,750 MG in IV DEXTROSE 5% 500 ML IV SCH ×2 (05:43→16:34)
[2017-12-27] MEDS: MORPHINE SULFATE SR 30 MG TABLET.SA PO SCH ×3 (05:46→21:44)
[2017-12-27 06:50] LABS: BASOPHILS % (AUTO) 0.9 % (0.0-2.0); EOSINOPHILS # (AUTO) 0.1 K/uL (0.0-0.7); EOSINOPHILS % (AUTO) 3.3 % (0.0-7.0); HEMATOCRIT 27.9 % (36.7-47.1); HEMOGLOBIN 9.7 g/dL (12.5-16.3); LYMPHOCYTES # (AUTO) 0.4 K/uL (20.0-40.0); MEAN CORPUSCULAR HEMOGLOBIN 28.9 uug (23.8-33.4); MEAN CORPUSCULAR HGB CONC 35 g/dL (32.5-36.3); MEAN CORPUSCULAR VOLUME 83.3 fL (73.0-96.2); MONOCYTES # (AUTO) 0.5 K/uL (2.0-10.0); MONOCYTES % (AUTO) 10.5 % (0.0-11.0); NEUTROPHILS # (AUTO) 3.4 K/uL (1.8-8.9); NEUTROPHILS % (AUTO) 76.3 % (38.5-71.5); PLATELET COUNT (AUTO) 569 K/uL (152-348); RED BLOOD CELL COUNT(AUTO) 3.35 MIL/uL (4.06-5.63); WHITE BLOOD COUNT (AUTO) 4.5 K/uL (3.6-10.2)
[2017-12-27 07:07] LABS: BILIRUBIN,TOTAL 0.5 mg/dL (0.2-1.0); CREATININE 0.9 mg/dL (0.6-1.3); MAGNESIUM 1.9 mg/dL (1.8-2.4); PHOSPHOROUS 4.3 mg/dL (2.5-4.9); TOTAL PROTEIN, SERUM 6.3 g/dL (6.4-8.2)
--- NOTE | 2017-12-27 09:00 | NUR ---
Received patient awake, alert x4. With air mattress in place. Tolerable pain over right hip area. Not in any form of distress. Will continue to monitor.
[2017-12-27] MEDS: COLCHICINE 0.6 MG TABLET PO SCH ×2 (09:20→16:34)
[2017-12-27] MEDS: DOCUSATE SODIUM 100 MG CAPSULE PO SCH ×2 (09:20→16:34)
[2017-12-27] MEDS: AMLODIPINE 5 MG TABLET PO SCH (09:20)
[2017-12-27] MEDS: FAMOTIDINE 20 MG TABLET PO SCH ×2 (09:20→21:44)
[2017-12-27] MEDS: GABAPENTIN 300 MG CAPSULE PO SCH ×2 (09:20→16:34)
[2017-12-27] MEDS: HYDROCORTISONE 1% CREAM 30 GM TUBE TP SCH ×2 (09:21→16:35)
[2017-12-27] MEDS: ALLOPURINOL 300 MG TABLET PO SCH (09:21)
--- NOTE | 2017-12-27 11:30 | NUR ---
Dressing changed, still with redness over surgical site with minimal drainage. With open wound near surgical site, previously blister site as claimed by patient, cleaned and covered. Pictures taken. Up with physical therapy. In pain and patient said he is tired. Unable to ambulate
--- NOTE | 2017-12-27 14:57 | NUR ---
Clinical pharmacy note-Vancomycin dosing per pharmacy Subjective: To continue Vancomycin dosing on this 62 yo male patient for suspected infection(S/P hip arthroplasty) Objective: BUN 14 Scr 0.0 WBC 4.5 Temp 99 Vanco trough level: 17.9 at 2021(20 min.later than expected time) ht 193 cm wt 104 kg Assessment/Plan: Will change Vancomycin 1750mg IV every 10 hrs to every 11 hrs due to trough is higher than expected(17.9, still under 20), trough drawn 20 min later than ordered time and scr is increasing. Expected trough is 16.6. Will not order another trough for now due to change was minimal but if renal function changes significantly, will consider another trough. Will monitor daily.
[2017-12-27] MEDS: OXYCODONE HCL 5 MG TABLET PO PRN (17:54)
[2017-12-27 18:00] VITALS: BP 126/75
[2017-12-27] MEDS: RIVAROXABAN 10 MG TABLET PO SCH (18:06)
[2017-12-27 20:33] VITALS: BP 121/71
[2017-12-27] MEDS: SENNOSIDES 1 TABLET PO SCH (21:44)
[2017-12-27] MEDS: TAMSULOSIN HCL 0.4 MG CAP.SR.24H PO SCH (21:44)
--- NOTE | 2017-12-28 02:23 | NUR ---
Received pt at the beginning of shift resting in bed. AAO x4. No acute distress noted. C/o pain on the right hip 10/11, routine pain med given as ordered. Turned and repositioned. Offloading on both heels. Air mattress in place. Safety measures maintained. Call light and personal belongings within reach. Will continue to monitor.
[2017-12-28] MEDS: VANCOMYCIN IV 1,750 MG in IV DEXTROSE 5% 500 ML IV SCH ×2 (05:01→16:51)
[2017-12-28] MEDS: MORPHINE SULFATE SR 30 MG TABLET.SA PO SCH ×3 (05:20→21:04)
[2017-12-28 05:24] VITALS: BP 111/69
--- NOTE | 2017-12-28 07:11 | NUR ---
Pt was cleaned and shaved this morning. Surgical site cleaned and dressing changed. Pt has ortho appointment today. Will endorse to day shift RN. Continue to monitor.
[2017-12-28] MEDS: GABAPENTIN 300 MG CAPSULE PO SCH ×2 (09:01→16:51)
[2017-12-28] MEDS: ALLOPURINOL 300 MG TABLET PO SCH (09:01)
[2017-12-28] MEDS: DOCUSATE SODIUM 100 MG CAPSULE PO SCH ×2 (09:01→16:51)
[2017-12-28] MEDS: COLCHICINE 0.6 MG TABLET PO SCH ×2 (09:01→16:51)
[2017-12-28] MEDS: FAMOTIDINE 20 MG TABLET PO SCH ×2 (09:01→20:59)
[2017-12-28] MEDS: AMLODIPINE 5 MG TABLET PO SCH (09:02)
[2017-12-28] MEDS: HYDROCORTISONE 1% CREAM 30 GM TUBE TP SCH ×2 (09:03→16:59)
[2017-12-28] MEDS: OXYCODONE HCL 5 MG TABLET PO PRN ×2 (09:14→13:01)
--- NOTE | 2017-12-28 10:32 | NUR ---
Patient out of bed, up ambulating with walker with physical therapist. No complain of pain or discomfort at this time. Not in distress.
--- NOTE | 2017-12-28 13:32 | NUR ---
Clinical pharmacy note-Vancomycin dosing per pharmacy Subjective: To continue Vancomycin dosing on this 62 yo male patient for suspected infection(S/P hip arthroplasty) Objective: BUN 14 (12/27) Scr 0.9 (12/27) WBC 4.5 (12/27) Temp 97.9 ht 193 cm wt 104 kg Assessment/Plan: Will continue same dose of Vancomycin 1750mg IV every 11 hrs for today. Next dose due today at 1300. Plan to order vanco trough level on 12/29 at 1230. Will follow up daily.
[2017-12-28 16:35] VITALS: BP 122/72
[2017-12-28] MEDS: RIVAROXABAN 10 MG TABLET PO SCH (17:05)
--- NOTE | 2017-12-28 18:20 | NUR ---
Dr. Hussein seen and examined patient edgar surgical wound and ordered to discontinue vancomycin IV.
[2017-12-28 20:31] VITALS: BP 121/65
[2017-12-28] MEDS: SENNOSIDES 1 TABLET PO SCH (20:59)
[2017-12-28] MEDS: TAMSULOSIN HCL 0.4 MG CAP.SR.24H PO SCH (20:59)
--- NOTE | 2017-12-28 21:55 | NUR ---
Received pt at the beginning of shift resting in bed. AAO x4. No acute distress noted. C/o pain on the right hip, routine pain med given. Offload on both heels. Air mattress in place. Turned and repositioned. Safety measures maintained. Call light and personal belongings within reach. Will continue to monitor.
[2017-12-29] MEDS: MORPHINE SULFATE SR 30 MG TABLET.SA PO SCH ×3 (06:07→21:20)
[2017-12-29 06:48] VITALS: BP 118/73
[2017-12-29 07:25] LABS: CREATININE 0.9 mg/dL (0.6-1.3); POTASSIUM 4.2 mmol/L (3.5-5.1)
[2017-12-29 07:56] LABS: BASOPHILS # (AUTO) 0.1 K/uL (0.0-8.0); BASOPHILS % (AUTO) 1.2 % (0.0-2.0); EOSINOPHILS # (AUTO) 0.1 K/uL (0.0-0.7); HEMATOCRIT 29.7 % (36.7-47.1); HEMOGLOBIN 10.2 g/dL (12.5-16.3); LYMPHOCYTES # (AUTO) 0.6 K/uL (20.0-40.0); MEAN CORPUSCULAR HGB CONC 34 g/dL (32.5-36.3); MEAN CORPUSCULAR VOLUME 84.2 fL (73.0-96.2); MONOCYTES # (AUTO) 0.5 K/uL (2.0-10.0); MONOCYTES % (AUTO) 10.3 % (0.0-11.0); NEUTROPHILS # (AUTO) 3.3 K/uL (1.8-8.9); NEUTROPHILS % (AUTO) 72.5 % (38.5-71.5); PLATELET COUNT (AUTO) 607 K/uL (152-348); RED BLOOD CELL COUNT(AUTO) 3.53 MIL/uL (4.06-5.63); WHITE BLOOD COUNT (AUTO) 4.6 K/uL (3.6-10.2)
[2017-12-29 08:00] VITALS: BP 123/68
--- NOTE | 2017-12-29 08:00 | NUR ---
Patient noted resting in bed, states, "Pain is climbing to a 6/10", PRN oxycodone given, no signs of distress noted, call light in reach, bed locked and in lowest,all needs known
[2017-12-29] MEDS: DOCUSATE SODIUM 100 MG CAPSULE PO SCH ×2 (08:34→17:34)
[2017-12-29] MEDS: GABAPENTIN 300 MG CAPSULE PO SCH ×2 (08:34→17:34)
[2017-12-29] MEDS: FAMOTIDINE 20 MG TABLET PO SCH ×2 (08:34→21:19)
[2017-12-29] MEDS: COLCHICINE 0.6 MG TABLET PO SCH ×2 (08:34→17:34)
[2017-12-29] MEDS: AMLODIPINE 5 MG TABLET PO SCH (08:35)
[2017-12-29] MEDS: ALLOPURINOL 300 MG TABLET PO SCH (08:35)
[2017-12-29] MEDS: OXYCODONE HCL 5 MG TABLET PO PRN ×2 (08:35→17:34)
[2017-12-29] MEDS: HYDROCORTISONE 1% CREAM 30 GM TUBE TP SCH ×2 (08:36→17:36)
[2017-12-29 17:05] VITALS: BP 117/69
[2017-12-29] MEDS: RIVAROXABAN 10 MG TABLET PO SCH (17:35)
--- NOTE | 2017-12-29 20:00 | NUR ---
Patient received at bed. AAO X4. Able to make needs known. Verbally responsive appropriately. No sign of acute distress or SOB was noted. On room air, O2 sat 95%. Has IV on his LT forearm G22, no sign of inflammation. No complain of pain at this time. A brief assessment was done. Air mattress in place. All safety measures maintained. Bed is on low position, brake and alarm are on. Call light and personal belongings within reach. Continue to monitor
[2017-12-29 20:17] VITALS: BP 112/69
[2017-12-29] MEDS: TAMSULOSIN HCL 0.4 MG CAP.SR.24H PO SCH (21:19)
[2017-12-29] MEDS: SENNOSIDES 1 TABLET PO SCH (21:20)
[2017-12-30] MEDS: OXYCODONE HCL 5 MG TABLET PO PRN ×2 (00:20→08:58)
[2017-12-30] MEDS: MORPHINE SULFATE SR 30 MG TABLET.SA PO SCH ×2 (05:11→12:58)
[2017-12-30 06:02] VITALS: BP 114/76
--- NOTE | 2017-12-30 06:09 | NUR ---
End of shift note, Patient remained stable throughout the shift. No acute distress or SOB was noted. Pain assessed and reassessed after pain medication. Medication given as ordered. All needs attended promptly. Safety measures maintained. Surgical dressing was changed, no redness, or drainage, or odor, wesly in placed. Mepilex was apply on RT heel. Keep him clean and comfortable. Bed in low position, alarm and brake on. Call light and personal belongings within reach. Continue to monitor and will endorse to day shift nurse.
[2017-12-30 07:31] LABS: CREATININE 0.9 mg/dL (0.6-1.3); POTASSIUM 4.2 mmol/L (3.5-5.1)
[2017-12-30 08:00] VITALS: BP 113/72
--- NOTE | 2017-12-30 08:00 | NUR ---
Patient noted resting in bed, states pain is 7/10, no signs so of distress noted, call light in reach, bed locked and in lowest position, air mattress inflated and in place, no change in mental status, all needs met
[2017-12-30] MEDS: DOCUSATE SODIUM 100 MG CAPSULE PO SCH (08:57)
[2017-12-30] MEDS: ALLOPURINOL 300 MG TABLET PO SCH (08:57)
[2017-12-30] MEDS: FAMOTIDINE 20 MG TABLET PO SCH (08:57)
[2017-12-30] MEDS: COLCHICINE 0.6 MG TABLET PO SCH (08:57)
[2017-12-30] MEDS: GABAPENTIN 300 MG CAPSULE PO SCH (08:57)
[2017-12-30 08:58] VITALS: BP 130/72
[2017-12-30] MEDS: AMLODIPINE 5 MG TABLET PO SCH (08:58)
[2017-12-30] MEDS: HYDROCORTISONE 1% CREAM 30 GM TUBE TP SCH (08:58)
--- NOTE | 2017-12-30 14:04 | NUR ---
Patient left facility at 1400 [facility], complaints of right hip pain 5/10, prn pain medication given at 1300, no signs of distress, pictures of right hip and right heel taken and placed in chart, all belongings accounted for and inventory sheet placed in chart, 113,72, 68 pulse, 17 respirations, 96% on room air, 97.9 oral temperature, Rx placed in chart for pain medication, left facility in stable condition
== END 2017-12-30 14:00 | disposition home health service (06) | DRG 560 ==
PROVIDERS: ADMIT Physical Medicine & Rehabilitation Pain Medicine; ATTEND Physical Medicine & Rehabilitation Pain Medicine
DX: Z47.1 Aftercare following joint replacement surgery (principal); D68.59 Other primary thrombophilia; E87.1 Hypo-osmolality and hyponatremia; Z96.641 Presence of right artificial hip joint; I10 Essential (primary) hypertension; M10.9 Gout, unspecified; K59.03 Drug induced constipation; T40.605A Adverse effect of unspecified narcotics, initial encounter; T50.2X5A Adverse effect of carbonic-anhydrase inhibitors, benzothiadiazides and other diuretics, initial encounter; Y92.230 Patient room in hospital as the place of occurrence of the external cause; E86.1 Hypovolemia; K59.00 Constipation, unspecified; M19.90 Unspecified osteoarthritis, unspecified site; Z88.0 Allergy status to penicillin; R50.9 Fever, unspecified; Z79.891 Long term (current) use of opiate analgesic
CPT/HCPCS: 36415; 71045; 73502; 83735; 84100; 84300; 84443; 84550; 85025; 87040; 87086; 92523; 92526; 92610; 97110; 97112; 97116; 97165; 97530; 97535; A9150; J3370; J7050; J7060; J8499; Q0163